=== PATIENT | female | born 1950 | race American Indian/Alaskan Native ===

== ENCOUNTER 2021-04-27 11:12 | Outpatient (CLI) | payer MEDICARE ==
--- NOTE | 2021-04-27 12:32 | XRay Report ---
RIGHT HAND 3 VIEWS INDICATION: PAIN IN RIGHT HAND. COMPARISON: None. IMPRESSION: Osteopenia is evident. No acute osseous abnormality, bone lesion or significant joint p athology is detected. The soft tissues are unremarkable. Signer Name: Quang Goldstein Jr, MD Signed: 04/27/2021 12:27 PM Workstation Name: [id number]
== END 2021-04-27 11:13 | disposition home or self-care (01) ==
LOC: SPVIMAG 11:12
PROVIDERS: ATTEND Urology
DX: M85.841 Other specified disorders of bone density and structure, right hand (principal)

== ENCOUNTER 2022-06-09 10:34 | Outpatient (CLI) | payer MEDICARE | END 2022-06-09 10:35 | disposition home or self-care (01) | LOC: SPVWC 10:34 | PROVIDERS: ATTEND Family Medicine | DX: Z12.31 Encounter for screening mammogram for malignant neoplasm of breast (principal) | CPT/HCPCS: 77067 ==

== ENCOUNTER 2022-08-06 12:24 | Outpatient (CLI) | payer MEDICARE ==
--- NOTE | 2022-08-06 13:17 | Mammography Report ---
DIGITAL DIAGNOSTIC MAMMOGRAM CONVENTIONAL, 08/06/2022 CLINICAL INFORMATION / INDICATION: Follow-up of left breast focal asymmetry seen on prior screening m ammogram. R92.8 TECHNIQUE: Digital left mammographic imaging was performed. Spot compression views were obtained. COMPARISON: Screening mammogram from 06/09/2022. FINDINGS: Breast Density: The breast is heterogeneously dense, which may obscure small masses. The previously described focal asymmetry located along the middle depth retroareolar region resolves on spot compression imaging and is compatible with summation of normal breast tissue. No new signific ant abnormality is identified. IMPRESSION: No mammographic evidence of malignancy. Benign finding as above. Follow up recommendation: Routine yearly screening mammogram. BI-RADS Category 2: BENIGN. A "normal" or negative report should not discourage follow up or biopsy of a clinically significant f inding. A written summary of these findings will be mailed to the patient. The patient will be entered into a mammography reporting system which will generate a reminder letter for the patient's next appointmen t at the appropriate interval. According to the [employer], yearly mammograms are recommended starting at age 40 and continuing as long as a woman is in good health. Breast MRI is recommended for women with an breanna roximately 20-25% or greater lifetime risk of breast cancer, including women with a strong family his tory of breast or ovarian cancer and women who have been treated for Hodgkin's disease. Signer Name: Ronnie Larkin MD Signed: 08/06/2022 1:13 PM Workstation Name: [id number]
== END 2022-08-06 12:25 | disposition home or self-care (01) ==
LOC: MAMMO 12:24
PROVIDERS: ATTEND Family Medicine
DX: R92.8 Other abnormal and inconclusive findings on diagnostic imaging of breast (principal)